=== PATIENT | male | born 1935 | race Caucasian/White ===

== ENCOUNTER 2018-11-10 14:16 | Observation (INO) | payer MEDICARE, BC ==
[~2018-11-10] VITALS: Ht 198.1 cm; Wt 97.7 kg
[~2018-11-10 14:16] MED LIST: AMLO5TAB4 PO; AUG875 PO; CALC-267 PO; CRES20 PO; CYAN100080 PO; DABI150C PO; DIGO125T PO; ERGO500014 PO; LOSA100T15 PO; POTA20TA8 PO; SOTA80TA PO
[2018-11-10 14:19] VITALS: Ht 198.1 cm; Wt 97.7 kg
--- NOTE | 2018-11-10 15:32 | ERD ---
ER Documentation Chief Complaint Chief Complaint code green - trip & fall, rt sided head injury w/abraisions; no LOC HPI 83-year-old male brought into the ER from the front steps of the hospital after a ground-level fall. It seems the patient was reading a newspaper per witnesses and tripped, falling and hitting the right side of his head. There was no loss of consciousness. However the patient is on blood thinners due to the atrial fibrillation. He denies any significant pain other than mild right head pain that is pulsating, 5 out of 10, nonradiating. No associated nausea or vomiting. No associated vision disturbance, focal weakness or numbness. He denies any neck or back pain. No hip pain. Patient was here for an appointment for his left foot in the wound care clinic and was leaving the hospital when this happ ened. ROS All systems reviewed and are negative except as per history of present illness. Medications Home Meds Reported Medications Losartan-Hydrochlorothiazide (Losartan-HCTZ) 100-12.5 Mg Tab, 1 TAB PO DAILY, TAB FOR 90 DAYS,LAST PRESCRIPTION FROM 07/11/18 UNABLE TO VERIFIED 11/10/18 Metoprolol Succinate* (Toprol XL*) 50 Mg Tab.er.24h, 50 MG PO BID, #30 TAB FOR 90 DAYS,LAST PRESCRIPTION FROM 07/22/18 UNABLE TO VERIFIED 11/10/18 Dabigatran Etexilate Mesylate* (Pradaxa*) 150 Mg Capsule, 150 MG PO BID, CAP FOR 90 DAYS, LAST PRESCRIPTION FROM 08/21/18 UNABLE TO VERIFIED 11/10/18 Meloxicam* (Meloxicam*) 7.5 Mg Tablet, 7.5 MG PO DAILY, #30 TAB FOR 30 DAYS,LAST PRESCRIPTION FROM 09/20/18 UNABLE TO VERIFIED 11/10/18 Discontinued Reported Medications Calc/D3/Mag/Zn/Word Processor/Chalo/[place] (Calcium 600 + Vit D) 1 Each Tablet, 1 TAB PO DAILY, TAB 05/09/15 Cyanocobalamin* (Vitamin B-12*) 1,000 Mcg Tablet.sa, 1000 MCG PO DAILY, TAB 05/09/15 Potassium Chloride* (Klor-Con*) 10 Meq Tabsr, 10 MEQ PO DAILY, TAB.SA 05/09/15 Amoxicillin-Clavulanate K* (Augmentin*) 875 Mg Tab, 1750 MG PO DAILY, TAB 05/09/15 Amlodipine Besylate* (Norvasc*) 5 Mg Tablet, 5 MG PO DAILY, TAB 05/09/15 Losartan Potassium* (Losartan Potassium*) 100 Mg Tablet, 100 MG PO DAILY, TAB 05/09/15 Rosuvastatin Calcium* (Crestor*) 20 Mg Tablet, 20 MG PO HS, TAB 05/09/15 Digoxin* (Digoxin*) 0.125 Mg Tab, 0.0625 MG PO DAILY, TAB 05/09/15 Dabigatran Etexilate Mesylate* (Pradaxa*) 150 Mg Capsule, 300 MG PO DAILY, CAP 05/09/15 Sotalol Hcl* (Betapace*) 80 Mg Tab, 160 MG PO DAILY, TAB 05/09/15 Ergocalciferol* (Drisdol* (Vitamin D2)) 50,000 Unit Capsule, 05341 UNIT PO Q7D, CAP 02/28/15 Allergies Allergies: Coded Allergies: No Known Allergies (Verified Allergy, Unknown, 11/10/18) PMhx/Soc History of Surgery: Yes (AORTIC VALVE REPLACEMENT 2013) Anesthesia Reaction: No Hx Neurological Disorder: No Hx Respiratory Disorders: No Hx Cardiac Disorders: Yes (AFIB/POST ABLATION, PACEMAKER, CARDIAC BYPASS) Hx Psychiatric Problems: No Hx Alcohol Use: Yes Hx Substance Use: No Hx Tobacco Use: Yes Smoking Status: Former smoker FmHx Family History: No diabetes Physical Exam Vitals Vital Signs Date Temp Pulse Resp B/P (MAP) Pulse Ox O2 O2 Flow FiO2 Time Delivery Rate 11/10/18 98 18 179/100 98 Room Air 20:19 (126) 11/10/18 98 20 184/112 97 Nasal 2.0 17:00 (136) Cannula 11/10/18 85 14 175/99 96 Room Air 15:57 (124) 11/10/18 84 14 166/119 96 Room Air 15:32 (135) 11/10/18 90 14 159/121 96 Room Air 14:20 (134) 11/10/18 97.9 90 20 159/121 98 14:19 (134) Physical Exam Const: No acute distress, well-appearing, nontoxic Head: Hematoma of the right lateral forehead with minimal bleeding Eyes: Normal Conjunctiva, PERRLA, EOMI ENT: No hemotympanum. Normal External Ears, Nose and Mouth. Neck: Full range of motion. No meningismus. No C-spine tenderness Resp: Clear to auscultation bilaterally Cardio: Irregularly irregular rhythm, normal rate. no murmurs Abd: Soft, non tender, non distended. Normal bowel sounds Skin: No lacerations. Superficial abrasions as noted in the extremity exam Pelvis: Stable and nontender Back: No midline tenderness or step-offs. No flank tenderness Ext: Normal to palpation. No deformities noted. No joint swelling. Full range of motion at all joints of the upper and lower extremities. Superficial abrasions to bilateral hands and knees. Neur: Awake and alert, oriented x3, cranial nerves intact, strength and sensations intact in all 4 extremities Psych: Normal Mood and Affect Result Diagram: 11/10/18 1445 11/10/18 1445 Results 24 hrs Laboratory Tests Test 11/10/18 14:45 White Blood Count 9.7 10^3/ul Red Blood Count 5.25 10^6/ul Hemoglobin 16.1 g/dl Hematocrit 47.7 % Mean Corpuscular Volume 90.9 fl Mean Corpuscular Hemoglobin 30.7 pg Mean Corpuscular Hemoglobin Concent 33.8 g/dl Red Cell Distribution Width 13.2 % Platelet Count 201 10^3/UL Mean Platelet Volume 12.0 fl Immature Granulocytes % 0.600 % Neutrophils % 72.0 % Lymphocytes % 18.8 % Monocytes % 6.4 % Eosinophils % 1.5 % Basophils % 0.7 % Nucleated Red Blood Cells % 0.0 /100WBC Immature Granulocytes # 0.060 10^3/ul Neutrophils # 7.0 10^3/ul Lymphocytes # 1.8 10^3/ul Monocytes # 0.6 10^3/ul Eosinophils # 0.2 10^3/ul Basophils # 0.1 10^3/ul Nucleated Red Blood Cells # 0.0 10^3/ul Prothrombin Time 14.0 Sec Prothrombin Time Ratio 1.1 INR International Normalized Ratio 1.07 Activated Partial Thromboplast Time 32.5 Sec Sodium Level 140 mmol/L Potassium Level 4.4 mmol/L Chloride Level 102 mmol/L Carbon Dioxide Level 21 mmol/L Anion Gap 17 Blood Urea Nitrogen 17 mg/dl Creatinine 1.15 mg/dl Est Glomerular Filtrat Rate mL/min mL/min Glucose Level 116 mg/dl Calcium Level 10.2 mg/dl Troponin I < 0.012 ng/ml Current Medications Medications Dose Sig/Jabier Start Time Status Last (Trade) Ordered Route PRN Stop Time Admin Dose Reason Admin Ondansetron 4 mg BRIDGE ORDER 11/10/18 DC HCl (Zofran PRN IV 18:30 Inj) NAUSEA/VOMITI 11/10/18 20:20 NG 650 mg ER BRIDGE 11/10/18 DC Acetaminophen PRN PO 18:30 (Tylenol .MILD PAIN 11/10/18 20:20 Tab) 1-3 OR TEMP Procedures/MDM EMERGENT LABS AND DIAGNOSTIC STUDIES: Lab Results above were reviewed and interpreted by me. CBC: no anemia or evidence of infection BMP: No evidence of electrolyte abnormality, renal failure, hypoglycemia Troponin within normal limits, not indicative of cardiac ischemia 12-lead EKG was interpreted by Chace Hernandez MD: Atrial fibrillation at 93 bpm Normal axis QTC prolongation at 514 ms No arrhythmia or acute ischemic changes Radiology Results as interpreted by Radiology below were reviewed by Sarah Hernandez MD: CT head shows no evidence of skull fracture or acute intracranial hemorrhage. Right temporal hematoma noted Chest x-ray shows no acute abnormalities Initial Nursing notes reviewed. Previous Medical Records requested via the Electronic Health Record. EMERGENCY DEPARTMENT COURSE / MEDICAL DECISION MAKING: Patient is presenting after a ground-level fall with a right head hematoma. Given his age and blood thinner use, CT head was done did not show any evidence of intracranial hemorrhage or skull fracture. Initially the patient seemed somewhat amnestic to what was going on. I wanted to admit him to the hospital for observation as I was not able to get a hold of any family. Patient was evaluated by the inpatient physician who I consulted, Dr. Li By that time, the patient's son had arrived and feels that the patient is at his baseline and is ready to go home. He feels comfortable taking the patient home and returning for any change in his mental status or any other symptoms. Patient's blood pressure was elevated (>120/80) but appears stable without evidence of hypertensive emergency or urgency. The patient was counseled about the risks of hypertension and urged to pursue outpatient monitoring and therapy within a week with their primary care physician. Departure Diagnosis: Primary Impression: Acute head injury Encounter type: initial encounter Qualified Codes: S09.90XA - Unspecified injury of head, initial encounter Additional Impression: Traumatic hematoma of scalp Encounter type: initial encounter Qualified Codes: S00.03XA - Contusion of scalp, initial encounter Condition: Stable Patient Instructions: HEAD INJURY, No Wake-Up (Adult) Additional Instructions: Return to the ER for any worsening symptoms. Follow-up with your primary care doctor in the next 2-3 days. You may take [id number] Tylenol for any pain. ZAK HERNANDEZ MD Nov 10, 2018 15:32
[2018-11-10] MEDS ORDERED: MELO7.5T38 PO (17:45)
[2018-11-10] MEDS ORDERED: DABI150C PO (17:47)
[2018-11-10] MEDS ORDERED: METO-319 PO (17:49)
[2018-11-10] MEDS ORDERED: LOSA1TAB28 PO (17:51)
[2018-11-10] MEDS ORDERED: ACETAMINOPHEN 325 MG TAB PO PRN (18:30)
[2018-11-10] MEDS ORDERED: ONDANSETRON 4 MG INJ IV PRN (18:30)
--- NOTE | 2018-11-10 19:43 | CONS ---
Assessment/Plan Assessment/Plan Hospital Course (Demo Recall) 83 yo male with A Fib s/p PPM on AC, DMII, HTN, PAD s/p toe resection who presents after mechanical fall - By history fall was mechanical. I advised patient and son about fall precautions. Patient with neuropathy and prone to this. Son thinking about senior care - Regarding head trauma, there is no evidence of intracrancial bleed. His exam is entriely nonfocal. Ok for patient to dc home now. I advised his son about monitoring him for symptoms - I have advised them to hold Pradaxa for the following few days. I also advised to discuss with PMD whether or not anticoagulation should be continued Consultation Date/Type/Reason Admit Date/Time Date/Time of Note DATE: 11/10/18 TIME: 19:38 Hx of Present Illness 83 yo male with h/o A Fib on AC, PPM, hypertension, DMII, PAD who presents after mechanical fall Patient in [facility] [place]. Tripped and fell today leading to welt on his head. He had no LOC. Adamant this was mechanical. In ED had head CT showing no bleed His son is at bedside. Patient is in very good spirits, jovial. No complaints aside from welt on his forehead. No localizing weakness or numbness etc His son maintains that this is his baseline mentation and he is his normal self Past Medical History Medical History: no pertinent history Home Meds Reported Medications Losartan-Hydrochlorothiazide (Losartan-HCTZ) 100-12.5 Mg Tab, 1 TAB PO DAILY, TAB FOR 90 DAYS,LAST PRESCRIPTION FROM 07/11/18 UNABLE TO VERIFIED 11/10/18 Metoprolol Succinate* (Toprol XL*) 50 Mg Tab.er.24h, 50 MG PO BID, #30 TAB FOR 90 DAYS,LAST PRESCRIPTION FROM 07/22/18 UNABLE TO VERIFIED 11/10/18 Dabigatran Etexilate Mesylate* (Pradaxa*) 150 Mg Capsule, 150 MG PO BID, CAP FOR 90 DAYS, LAST PRESCRIPTION FROM 08/21/18 UNABLE TO VERIFIED 11/10/18 Meloxicam* (Meloxicam*) 7.5 Mg Tablet, 7.5 MG PO DAILY, #30 TAB FOR 30 DAYS,LAST PRESCRIPTION FROM 09/20/18 UNABLE TO VERIFIED 11/10/18 Discontinued Reported Medications Calc/D3/Mag/Zn/Senior Linux Systems Engineer/Chalo/[place] (Calcium 600 + Vit D) 1 Each Tablet, 1 TAB PO DAILY, TAB 05/09/15 Cyanocobalamin* (Vitamin B-12*) 1,000 Mcg Tablet.sa, 1000 MCG PO DAILY, TAB 05/09/15 Potassium Chloride* (Klor-Con*) 10 Meq Tabsr, 10 MEQ PO DAILY, TAB.SA 05/09/15 Amoxicillin-Clavulanate K* (Augmentin*) 875 Mg Tab, 1750 MG PO DAILY, TAB 05/09/15 Amlodipine Besylate* (Norvasc*) 5 Mg Tablet, 5 MG PO DAILY, TAB 05/09/15 Losartan Potassium* (Losartan Potassium*) 100 Mg Tablet, 100 MG PO DAILY, TAB 05/09/15 Rosuvastatin Calcium* (Crestor*) 20 Mg Tablet, 20 MG PO HS, TAB 05/09/15 Digoxin* (Digoxin*) 0.125 Mg Tab, 0.0625 MG PO DAILY, TAB 05/09/15 Dabigatran Etexilate Mesylate* (Pradaxa*) 150 Mg Capsule, 300 MG PO DAILY, CAP 05/09/15 Sotalol Hcl* (Betapace*) 80 Mg Tab, 160 MG PO DAILY, TAB 05/09/15 Ergocalciferol* (Drisdol* (Vitamin D2)) 50,000 Unit Capsule, 97822 UNIT PO Q7D, CAP 02/28/15 Medications Current Medications Ondansetron HCl (Zofran Inj) 4 mg BRIDGE ORDER PRN IV NAUSEA/VOMITING; Start 11/10/18 at 18:30; Stop 11/11/18 at 18:29 Acetaminophen (Tylenol Tab) 650 mg ER BRIDGE PRN PO .MILD PAIN 1-3 OR TEMP; Start 11/10/18 at 18:30; Stop 11/11/18 at 18:29 Allergies: Coded Allergies: No Known Allergies (Verified Allergy, Unknown, 11/10/18) Past Surgical History Past Surgical Hx: no surgical history Family History Significant Family History: no pertinent family hx Social History Alcohol Use: none Smoking Status: Former smoker Drug Use: none Exam/Review of Systems Exam Vitals Vital Signs Date Temp Pulse Resp B/P (MAP) Pulse Ox O2 O2 Flow FiO2 Time Delivery Rate 11/10/18 98 20 184/112 97 Nasal 2.0 17:00 (136) Cannula 11/10/18 97.9 14:19 Exam Alert, oriented x 2 Well appearing, no distress, jovial Welt on R side of forehead CN II-XII in tact. Strenght in tact throughout Heart sounds normal Breathign comfortably Soft nt nd Ext warm without edema Leg in foot boot Results Result Diagram: 11/10/18 1445 11/10/18 1445 Results 24hrs Laboratory Tests Test 11/10/18 14:45 White Blood Count 9.7 Red Blood Count 5.25 # Hemoglobin 16.1 # Hematocrit 47.7 # Mean Corpuscular Volume 90.9 Mean Corpuscular Hemoglobin 30.7 Mean Corpuscular Hemoglobin Concent 33.8 Red Cell Distribution Width 13.2 Platelet Count 201 Mean Platelet Volume 12.0 #H Immature Granulocytes % 0.600 H Neutrophils % 72.0 Lymphocytes % 18.8 Monocytes % 6.4 Eosinophils % 1.5 Basophils % 0.7 Nucleated Red Blood Cells % 0.0 Immature Granulocytes # 0.060 H Neutrophils # 7.0 Lymphocytes # 1.8 Monocytes # 0.6 Eosinophils # 0.2 Basophils # 0.1 Nucleated Red Blood Cells # 0.0 Prothrombin Time 14.0 Prothrombin Time Ratio 1.1 INR International Normalized Ratio 1.07 Activated Partial Thromboplast Time 32.5 Sodium Level 140 Potassium Level 4.4 Chloride Level 102 Carbon Dioxide Level 21 Anion Gap 17 H Blood Urea Nitrogen 17 Creatinine 1.15 Est Glomerular Filtrat Rate mL/min Glucose Level 116 Calcium Level 10.2 Troponin I < 0.012 Medications Medication Current Medications Ondansetron HCl (Zofran Inj) 4 mg BRIDGE ORDER PRN IV NAUSEA/VOMITING; Start 11/10/18 at 18:30; Stop 11/11/18 at 18:29 Acetaminophen (Tylenol Tab) 650 mg ER BRIDGE PRN PO .MILD PAIN 1-3 OR TEMP; Start 11/10/18 at 18:30; Stop 11/11/18 at 18:29 PATRICIA JOHN MD Nov 10, 2018 19:43
[2018-11-10 20:19] VITALS: BP 179/100; PULSE 98; RESP 18
== END 2018-11-10 20:20 | disposition home or self-care (01) ==
LOC: E/R 14:16 → MS3 18:09 → E/R 20:20 → CANBEDREQ 11-13 18:26
PROVIDERS: ADMIT Internal Medicine; ATTEND Internal Medicine
DX: S09.90XA Unspecified injury of head, initial encounter (principal); S00.03XA Contusion of scalp, initial encounter; W01.198A Fall on same level from slipping, tripping and stumbling with subsequent striking against other object, initial encounter; Y92.89 Other specified places as the place of occurrence of the external cause; I48.91 Unspecified atrial fibrillation; E11.9 Type 2 diabetes mellitus without complications; I10 Essential (primary) hypertension; Z87.891 Personal history of nicotine dependence; Z95.2 Presence of prosthetic heart valve; Z95.0 Presence of cardiac pacemaker; Z95.1 Presence of aortocoronary bypass graft
CPT/HCPCS: 11043; 70450; 71045; 80048; 84484; 85025; 85610; 85730; 93005; 99285; G0378; G0463